=== PATIENT | male | born 1985 | race Asian ===

== ENCOUNTER 2022-02-03 07:55 | Emergency (ER) | payer OTHER ==
[~2022-02-03] VITALS: Ht 167.6 cm; Wt 100.0 kg
[2022-02-03] MEDS ORDERED: HYDROCODONE/ACETAMINOPHEN 5-325 MG TABLET PO ONE (09:15)
[2022-02-03] MEDS ORDERED: KETOROLAC TROMETHAMINE 30 MG/ML VIAL IVP ONE (09:15)
[2022-02-03 09:38] LABS: BASOPHILS % (AUTO) 0.6 % (0.0-2.0); EOSINOPHILS % (AUTO) 1.4 % (1.0-6.0); HEMATOCRIT 41.6 % (41-53); HEMOGLOBIN 14.2 g/dL (13.5-17.5); LYMPHOCYTES # (AUTO) 1.7 K/uL (1.0-4.8); LYMPHOCYTES % (AUTO) 19.6 % (22.0-44.0); MEAN CORPUSCULAR HEMOGLOBIN 30.1 pg (26.0-34.0); MEAN CORPUSCULAR HGB CONC 34.2 G/dL (31.0-37.0); MEAN CORPUSCULAR VOLUME 88 fL (80-100); MONOCYTES # (AUTO) 0.9 K/uL (0.1-1.0); NEUTROPHILS # (AUTO) 5.9 K/uL (1.8-7.7); NEUTROPHILS % (AUTO) 68.4 % (40.0-70.0); PLATELET COUNT (AUTO) 346 K/uL (150-450); RED BLOOD CELL COUNT(AUTO) 4.73 MIL/uL (4.50-5.90); RED CELL DISTRIBUTION WIDTH 13.4 % (11.5-14.5)
[2022-02-03 09:57] LABS: ANION GAP 12 mmol/L (8-16); CALCIUM, TOTAL 9.5 mg/dL (8.8-10.5); CARBON DIOXIDE 25 mmol/L (22-29); CHLORIDE 105 mmol/L (98-107); CREATININE 1.33 mg/dL (0.60-1.30); GLUCOSE,RANDOM 106 mg/dL (70-110); POTASSIUM 3.9 mmol/L (3.5-5.1); SODIUM SERUM 142 mmol/L (136-145); UREA NITROGEN, BLOOD 16 mg/dL (7-18)
[2022-02-03] MEDS ORDERED: LIDOCAINE 2%/EPI 1:200,000/PF 20 ML VIAL PERC ONE (10:00)
[2022-02-03 10:03] LABS: GLOMERULAR FILTR. RATE CALC > 60 mL/min (>60)
[2022-02-03] MEDS ORDERED: AMOX1TAB16 PO (11:01)
[2022-02-03] MEDS ORDERED: POLY17PO47 PO (11:01)
[2022-02-03 11:05] VITALS: BP 149/84
== END 2022-02-03 12:14 | disposition home or self-care (01) ==
LOC: EMS 07:55
DX: K61.0 Anal abscess (principal)
CPT/HCPCS: 36415; 46050; 80048; 85025; 96374; 99284; J1885